=== PATIENT | male | born 1955 | race Caucasian/White ===

== ENCOUNTER 2017-10-09 10:53 | Emergency (ER) | payer OTHER ==
[2017-10-09 11:32] LABS: Absolute Lymphocytes (CBC) 1.8 K/uL (0.7-4.9); Absolute Monocytes 0.9 K/uL (0.1-1.3); Absolute Neutrophil 4.2 K/uL (1.8-8.0); Basophils % 0.5 % (0-1.3); Eosinophils % 1.6 % (0-4.4); Hematocrit 40.8 % (39.6-49.0); Lymphocytes % 25.7 % (15.3-44.8); MCH 33.2 pg (27.0-35.0); MCV 95.8 fL (80-100); Monocytes % 12.5 % (3.3-12.3); RBC Red Blood Cell Count 4.26 M/uL (4.33-5.43)
[2017-10-09 11:41] LABS: Protime INR 1.03
--- NOTE | 2017-10-09 11:46 | RAD REPORT ---
EXAM DESCRIPTION: RAD - Chest Single View - 10/09/2017 11:36 am CLINICAL HISTORY: CHEST PAIN Chest pain. COMPARISON: CHEST SINGLE VIEW dated 10/20/2014; CHEST PA AND LAT 2 VIEW dated 07/13/2013; CHEST SINGLE VIEW dated 09/24/2012 FINDINGS: Portable technique limits examination quality. The lungs are grossly clear. The heart is normal in size. No displaced fractures. IMPRESSION: No acute intrathoracic process suspected.
[2017-10-09 11:52] LABS: ALT/SGPT 49 U/L (12-78); AST/SGOT 31 U/L (15-37); Alkaline Phosphatase 64 U/L (45-117); BUN Blood Urea Nitrogen 11 mg/dL (7-18); Bicarbonate 31 mmol/L (21-32); Bilirubin Direct 0.2 mg/dL (0-0.2); Bilirubin Total 0.5 mg/dL (0.2-1.0); Glucose Level 87 mg/dL (74-106); Magnesium 2.1 mg/dL (1.8-2.4); NT PRO-BNP 181 pg/mL (<125); Potassium 3.9 mmol/L (3.5-5.1); Protein, Total 7.2 g/dL (6.4-8.2); Sodium Level 140 mmol/L (136-145)
--- NOTE | 2017-10-09 12:46 | EKG ---
Test Date: 2017-10-09 Test Time: 11:01:47 Facilities Management Executive: MOMO MEASUREMENT RESULTS: Intervals: Rate: 55 [place]: 172 QRSD: 84 QT: 426 QTc: 407 [place]: P: 44 [place]: 172 QRS: 8 T: 41 INTERPRETIVE STATEMENTS: Sinus bradycardia Otherwise normal ECG Compared to ECG 10/20/2014 08:38:28 Sinus rhythm no longer present Myocardial infarct finding no longer present Electronically Signed On 10-09-17 12:45:46 CDT by Wali Otero
--- NOTE | 2017-10-09 14:54 | ER ---
Nurse's Notes [facility] Name: Ashely Dorantes Age: 62 yrs Sex: Male : 1955 Arrival Date: 10/09/2017 Time: 10:54 Bed 8 Private MD: Out, [facility] Diagnosis: Presentation: 10/09 11:02 Presenting complaint: Patient states: CP that began this morning and lasted 20-30 ss minutes. Pt called his aboriginal liaison officer who told him to go to the nearest ER immediately. Pt reports his pain improved because he reportedly took 700 mg this morning. Transition of care: patient was not received from another setting of care. Onset of symptoms was October 09, 2017. Risk Assessment: Do you want to hurt yourself or someone else? Patient reports no desire to harm self or others. Initial Sepsis Screen: Does the patient meet any 2 criteria? No. Patient's initial sepsis screen is negative. Does the patient have a suspected source of infection? No. Patient's initial sepsis screen is negative. Care prior to arrival: Pt reports he self administered ASA 700 mg, and now feels better. 11:02 Method Of Arrival: Ambulatory ss 11:02 Acuity: NUHA 3 ss 11:15 Note Pt also c/o excessive thirst since this morning. ss Historical: - Allergies: 11:07 Morphine; ss - Home Meds: 11:07 temazepam 15 mg Oral cap 1 cap once daily [Active]; Lexapro 30 mg Oral 1 tab once daily ss [Active]; metoprolol tartrate 25 mg Oral tab 1 tab once daily [Active]; clopidogrel 75 mg oral tab 1 tab once daily [Active]; atorvastatin 80 mg oral tab 1 tab once daily [Active]; finasteride 5 mg oral tab 1 tab once daily [Active]; - PMHx: 11:07 Myocardial infarction; CAD; ss - PSHx: 11:07 Heart stents; ss - Immunization history:: Adult Immunizations up to date. - Social history:: Smoking status: Patient/guardian denies using tobacco. - Ebola Screening: : Patient denies exposure to infectious person Patient denies travel to an Ebola-affected area in the 21 days before illness onset. Screenin:15 Abuse screen: Denies threats or abuse. Denies injuries from another. Nutritional hb screening: No deficits noted. Tuberculosis screening: No symptoms or risk factors identified. Fall Risk None identified. Assessment: 11:00 General: Appears in no apparent distress. Behavior is calm, cooperative. Pain: hb Complains of pain in chest Pain does not radiate. Pain currently is 2 out of 10 on a pain scale. Pain began suddenly, 1 hour ago. Neuro: Level of Consciousness is awake, alert, obeys commands, Oriented to person, place, time, situation. Cardiovascular: Heart tones S1 S2 present Capillary refill < 3 seconds Patient's skin is warm and dry. Respiratory: Airway is patent Trachea midline Respiratory effort is even, unlabored, Respiratory pattern is regular, symmetrical, Breath sounds are clear bilaterally. GI: No signs and/or symptoms were reported involving the gastrointestinal system. GI: No signs and/or symptoms were reported involving the gastrointestinal system. : No signs and/or symptoms were reported regarding the genitourinary system. EENT: No signs and/or symptoms were reported regarding the EENT system. Derm: No signs and/or symptoms reported regarding the dermatologic system. Skin is intact, is healthy with good turgor, Skin is pink, warm \T\ dry. Musculoskeletal: No signs and/or symptoms reported regarding the musculoskeletal system. 11:59 Reassessment: Patient appears in no apparent distress at this time. No changes from previously documented assessment. Patient and/or family updated on plan of care and expected duration. Pain level reassessed. Patient is alert, oriented x 3, equal unlabored respirations, skin warm/dry/pink. 13:00 Reassessment: Patient appears in no apparent distress at this time. Patient and/or sg family updated on plan of care and expected duration. Pain level reassessed. Patient is alert, oriented x 3, equal unlabored respirations, skin warm/dry/pink. at bedside updating pt on need for repeat cardiac series testing. pt stated understanding. orders received to redraw blood and repeat EKG after 3 hours of initial orders. Patient states feeling better. 13:40 Reassessment: pt requesting to leave now, does not wish to wait for the redraw time of sg repeat cardiac labs and EKG. notified. speaking with pt at this time. 13:50 Reassessment: Patient appears in no apparent distress at this time. Patient is alert, sg oriented x 3, equal unlabored respirations, skin warm/dry/pink. pt educated by on AMA, pt educated by ER staff on AMA, pt continues to refuse, requests to leave AMA, AMA formed signed. pt to be dispo AMA Patient denies pain at this time. Vital Signs: 11:07 BP 132 / 83; Pulse 56; Resp 17; Temp 97.8(O); Pulse Ox 97% on R/A; Weight 84.37 kg; ss Height 5 ft. 10 in. (177.80 cm); Pain 0/10; 11:59 BP 130 / 72; Pulse 66; Resp 15; Pulse Ox 100% on R/A; hb 12:59 BP 115 / 85; Pulse 67; Resp 21; Pulse Ox 97% on R/A; dh3 13:41 BP 109 / 65; Pulse 56; Resp 14; Pulse Ox 97% on R/A; dh3 11:07 Body Mass Index 26.69 (84.37 kg, 177.80 cm) ED Course: 10:54 Patient arrived in ED. sb2 10:54 Out, of [facility] is Private Physician. sb2 10:56 Michael Hernandez MD is Attending Physician. kdr 11:05 Triage completed. ss 11:07 Inserted saline lock: 18 gauge in right antecubital area, using aseptic technique. dh3 Blood collected. 11:07 EKG done, by pattern technician. reviewed by Michael Hernandez MD. at1 11:07 Arm band placed on right wrist. ss 11:10 Patient maintains SpO2 saturation greater than 95% on room air. sg 11:15 Patient has correct armband on for positive identification. Placed in gown. Bed in low sg position. Call light in reach. Side rails up X2. laboratory monitor on. Pulse ox on. NIBP on. Warm blanket given. Head of bed elevated. 11:33 X-ray completed. Portable x-ray completed in exam room. Patient tolerated procedure jb2 well. 11:34 XRAY Chest (1 view) In Process Unspecified. EDMS 12:01 Mago Cha, RN is Primary Nurse. hb 13:40 No provider procedures requiring assistance completed. sg 13:58 IV discontinued, intact, bleeding controlled, No redness/swelling at site. Pressure sg dressing applied. Administered Medications: No medications were administered Outcome: 13:58 AMA AMA form signed 13:58 Condition: stable 13:58 Instructed on need for repeat cardiac testing in the ED, risks associated with leaving AMA Demonstrated understanding of instructions. 14:54 Patient left the ED. Signatures: Dispatcher [employer] EDJuvenal Darby RN RN sg Rittger, Kevin, MD MD kdr Buechter, Jesse jb2 Kaur Jay RN RN Cordelia ohara, pre billing clinician EKG Tat1 Mago Cha RN RN Radha Mason 3 Flora Dillon sb2
--- NOTE | 2017-10-09 14:54 | EDPHYS ---
Physician Documentation [facility] Name: Ashely Dorantes Age: 62 yrs Sex: Male : 1955 Arrival Date: 10/09/2017 Time: 10:54 Bed 8 Private MD: Out, [facility] ED Physician Michael Hernandze HPI: 10/09 11:31 This 62 yrs old Male presents to ER via Ambulatory with complaints of Chest kdr Pain. 11:31 The patient or guardian reports chest pain that is located primarily in the substernal kdr area, anterior chest wall. Onset: suddenly, this morning. The pain does not radiate. Associated signs and symptoms: Pertinent positives: diaphoresis, nausea, shortness of breath, Pertinent negatives: abdominal pain, headache, lower extremity pain, lower extremity swelling, lightheadedness, near syncope, palpitations, recent travel, syncope, vomiting. The chest pain is described as aching, burning, dull, a heaviness, a pressure. Duration: The patient or guardian reports a single episode, that is now resolved, that lasted 30 minute(s). Severity of pain: At its worst the pain was mild moderate just prior to arrival, in the emergency department the pain has resolved. The patient has experienced similar episodes in the past, The patient has been having intermittent CP for the past few week and today's episode was slightly more severe and lasted much longer, 30+ minutes as opposed to five minutes on average previosuly. Historical: - Allergies: 11:07 Morphine; ss - Home Meds: 11:07 temazepam 15 mg Oral cap 1 cap once daily [Active]; Lexapro 30 mg Oral 1 tab once daily ss [Active]; metoprolol tartrate 25 mg Oral tab 1 tab once daily [Active]; clopidogrel 75 mg oral tab 1 tab once daily [Active]; atorvastatin 80 mg oral tab 1 tab once daily [Active]; finasteride 5 mg oral tab 1 tab once daily [Active]; - PMHx: 11:07 Myocardial infarction; CAD; ss - PSHx: 11:07 Heart stents; ss - Immunization history:: Adult Immunizations up to date. - Social history:: Smoking status: Patient/guardian denies using tobacco. - Ebola Screening: : Patient denies exposure to infectious person Patient denies travel to an Ebola-affected area in the 21 days before illness onset. ROS: 11:31 Constitutional: Negative for fever, chills, and weight loss, Eyes: Negative for injury, kdr pain, redness, and discharge, ENT: Negative for injury, pain, and discharge, Neck: Negative for injury, pain, and swelling, Respiratory: Negative for shortness of breath, cough, wheezing, and pleuritic chest pain, Abdomen/GI: Negative for abdominal pain, nausea, vomiting, diarrhea, and constipation, Back: Negative for injury and pain, : Negative for injury, bleeding, discharge, and swelling, MS/Extremity: Negative for injury and deformity, Skin: Negative for injury, rash, and discoloration, Neuro: Negative for headache, weakness, numbness, tingling, and seizure activity. Psych: Negative for depression, anxiety, suicide ideation, homicidal ideation, and hallucinations, Allergy/Immunology: Negative for hives, rash, and allergies, Endocrine: Negative for neck swelling, polydipsia, polyuria, polyphagia, and marked weight changes, Hematologic/Lymphatic: Negative for swollen nodes, abnormal bleeding, and unusual bruising. 11:31 Cardiovascular: Positive for chest pain, Negative for edema, orthopnea, palpitations, paroxysmal nocturnal dyspnea. Exam: 11:31 Constitutional: This is a well developed, well nourished patient who is awake, alert, kdr and in no acute distress. Head/Face: Normocephalic, atraumatic. Eyes: Pupils equal round and reactive to light, extra-ocular motions intact. Lids and lashes normal. Conjunctiva and sclera are non-icteric and not injected. Cornea within normal limits. Periorbital areas with no swelling, redness, or edema. Neck: Trachea midline, no thyromegaly or masses palpated, and no cervical lymphadenopathy. Supple, full range of motion without nuchal rigidity, or vertebral point tenderness. No Meningismus. Chest/axilla: Normal chest wall appearance and motion. Nontender with no deformity. No lesions are appreciated. Cardiovascular: Regular rate and rhythm with a normal S1 and S2. No gallops, murmurs, or rubs. Normal PMI, no JVD. No pulse deficits. Respiratory: Lungs have equal breath sounds bilaterally, clear to auscultation and percussion. No rales, rhonchi or wheezes noted. No increased work of breathing, no retractions or nasal flaring. Abdomen/GI: Soft, non-tender, with normal bowel sounds. No distension or tympany. No guarding or rebound. No evidence of tenderness throughout. Back: No spinal tenderness. No costovertebral tenderness. Full range of motion. Skin: Warm, dry with normal turgor. Normal color with no rashes, no lesions, and no evidence of cellulitis. MS/ Extremity: Pulses equal, no cyanosis. Neurovascular intact. Full, normal range of motion. Neuro: Awake and alert, GCS 15, oriented to person, place, time, and situation. Cranial nerves II-XII grossly intact. Motor strength 5/5 in all extremities. Sensory grossly intact. Cerebellar exam normal. Normal gait. Psych: Awake, alert, with orientation to person, place and time. Behavior, mood, and affect are within normal limits. Vital Signs: 11:07 BP 132 / 83; Pulse 56; Resp 17; Temp 97.8(O); Pulse Ox 97% on R/A; Weight 84.37 kg; ss Height 5 ft. 10 in. (177.80 cm); Pain 0/10; 11:59 BP 130 / 72; Pulse 66; Resp 15; Pulse Ox 100% on R/A; hb 12:59 BP 115 / 85; Pulse 67; Resp 21; Pulse Ox 97% on R/A; dh3 13:41 BP 109 / 65; Pulse 56; Resp 14; Pulse Ox 97% on R/A; dh3 11:07 Body Mass Index 26.69 (84.37 kg, 177.80 cm) ss MDM: 11:31 Data reviewed: vital signs, nurses notes, lab test result(s), EKG, radiologic studies. kdr 14:54 Patient medically screened. [facility] 10/09 11:12 Order name: Basic Metabolic Panel [facility] 10/09 11:12 Order name: CBC with Diff; Complete Time: 13:25 [facility] 10/09 11:12 Order name: LFT's; Complete Time: 13:25 [facility] 10/09 11:12 Order name: Magnesium; Complete Time: 13:25 [facility] 10/09 11:12 Order name: NT PRO-BNP; Complete Time: 13:25 [facility] 10/09 11:12 Order name: PT-INR; Complete Time: 13:25 [facility] 10/09 11:12 Order name: Ptt, Activated; Complete Time: 13:25 kdr 10/09 11:12 Order name: Troponin (emerg Dept Use Only); Complete Time: 13:25 kdr 10/09 11:12 Order name: XRAY Chest (1 view); Complete Time: 13: kdr 10/09 11:12 Order name: EKG; Complete Time: 11: kdr 10/09 11:12 Order name: Cardiac monitoring; Complete Time: 11: kdr 10/09 11:12 Order name: EKG - Nurse/Tech; Complete Time: 11: kdr 10/09 11:12 Order name: Basic Metabolic Panel; Complete Time: 13: EDMS 10/09 11:12 Order name: IV Saline Lock; Complete Time: : kdr 10/09 11:12 Order name: Labs collected and sent; Complete Time: : kdr 10/09 11:12 Order name: O2 Per Protocol; Complete Time: : kdr 10/09 11:12 Order name: O2 Sat Monitoring; Complete Time: : kdr 10/09 11:12 Order name: Urine Dipstick-Ancillary (obtain specimen); Complete Time: 12: kdr 10/09 13:30 Order name: EKG Strip: 3 hours after first draw kdr Administered Medications: No medications were administered Disposition: 10/09/17 14:54 Patient has left against medical advice. - Patients states they are going to Home. - Condition is Fair. Follow up: Private Physician; When: 48 Hours; Reason: If symptoms return, Further diagnostic work-up, Recheck today's complaints, Continuance of care, Re-evaluation by your physician. - Problem is an acute exacerbation. - Symptoms have improved. Signatures: Dispatcher [employer] Juvenal Martinez RN RN sg Michael Hernandez MD MD kdr Kaur Jay RN RN ss Corrections: (The following items were deleted from the chart) 14:54 14:54 10/09/2017 14:54 Patients has left against medical advice. Patient states they sg are going to Home. Condition is Fair. Follow up: Private Physician; When: 48 Hours; Reason: If symptoms return, Further diagnostic work-up, Recheck today's complaints, Continuance of care, Re-evaluation by your physician. Problem is an acute exacerbation. Symptoms have improved. kdr
== END 2017-10-09 14:54 | disposition left against medical advice (07) ==
LOC: ER 10:53
DX: I25.10 Atherosclerotic heart disease of native coronary artery without angina pectoris (principal); Z95.5 Presence of coronary angioplasty implant and graft; Z88.5 Allergy status to narcotic agent; I25.2 Old myocardial infarction
CPT/HCPCS: 36415; 71045; 80048; 80076; 83735; 83880; 84484; 85025; 85610; 85730; 93005; 99285

== ENCOUNTER 2022-11-15 11:06 | Day surgery (SDC) | payer OTHER ==
[2022-11-12 16:14] LABS: Absolute Lymphocytes (CBC) 2.1 K/uL (0.7-4.9); Hematocrit 42.4 % (39.6-49.0); Lymphocytes % 24.2 % (15.3-44.8); MCV 96.8 fL (80-100); MPV 8.2 fL (7.6-11.3); Platelets 234 thou/uL (152-406); RBC Red Blood Cell Count 4.38 M/uL (4.33-5.43)
[2022-11-12 16:27] LABS: Protime INR 1.06
--- NOTE | 2022-11-12 16:30 | RAD REPORT ---
EXAM DESCRIPTION: Ana Cristina Broderick And Cristina (2 Views)11/12/2022 4:18 pm CLINICAL HISTORY: Preop cardiac catheterization. Hypertension COMPARISON: 2018 FINDINGS: The lungs appear clear of acute infiltrate. The heart is borderline enlarged IMPRESSION: No acute abnormalities displayed
--- NOTE | 2022-11-13 18:44 | EKG ---
Test Date: 2022-11-12 Test Time: 15:59:24 Bioinformatics Associate: AYAD MEASUREMENT RESULTS: Intervals: Rate: 60 [place]: 172 QRSD: 100 QT: 422 QTc: 422 [place]: P: 35 [place]: 172 QRS: -35 T: -38 INTERPRETIVE STATEMENTS: Normal sinus rhythm Left axis deviation Abnormal ECG Compared to ECG 10/09/2017 11:01:47 Left-axis deviation now present Sinus bradycardia no longer present Electronically Signed On 11-13-22 18:42:17 CDT by Eric Salas
[2022-11-15] MEDS ORDERED: NA CHLORIDE 0.9% 500 ML ONE (11:24)
[2022-11-15 11:40] VITALS: TEMP 98
[2022-11-15] MEDS ORDERED: LIDOCAINE 1% 20 ML MDV ONE (12:54)
[2022-11-15] MEDS ORDERED: HEPA 1000U/500MLS 2,000 UNIT/1,000 ML BAG IV ONE (13:59)
[2022-11-15] MEDS ORDERED: FENTANYL CITR 100 MCG/2 ML ONE (14:30)
[2022-11-15] MEDS ORDERED: MIDAZOLAM HCL 2 MG/2 ML INJ ONE (14:31)
[2022-11-15] MEDS ORDERED: ATROPINE SULF 1 MG/10 ML SYR IV ONE (14:31)
[2022-11-15] MEDS ORDERED: NITROGLYCERIN 100 MCG/ML SYR (for cath lab use only) IV ONE (14:31)
[2022-11-15] MEDS ORDERED: HEPARIN 10,000 UNIT/10 ML VIAL IV ONE (14:55)
[2022-11-15] MEDS ORDERED: ASPIRIN 325 MG TAB ONE (14:56)
[2022-11-15] MEDS ORDERED: CLOPIDOGREL 75 MG TABLET ONE (14:57)
[2022-11-15] MEDS ORDERED: ONDANSETRON 4 MG/2 ML VIAL ONE (15:12)
--- NOTE | 2022-11-15 16:13 | OP ---
Date of Procedure: 11/15/2022 Surgeon: LORI LEVIN Procedures Performed: 1.Selective coronary angiogram. 2.Left heart catheterization. 3.Percutaneous coronary intervention of severe mid right coronary artery stenosis, used 3.0 x 32 mm Synergy drug-eluting stent with excellent results. Indication: Chest pain with abnormal stress test. Access: Right femoral artery 6-Stateless closed with 6-Stateless Angio-Seal. Complications: None. Bleeding: Less than 20 mL. Total Sedation Time: 30 minutes. Description Of Procedure: After risks, benefits, and alternatives were explained, patient agreed to procedure and signed informed consent. Patient was brought into cardiac ablation laboratory, prepped and draped in usual sterile fashion. Then, I accessed right femoral artery using micropuncture kit, ultrasound guidance fluoroscopy. Placed a 6-Stateless [place] sheath and then took 6-Stateless JL4 scottie ter into the aortic root over a J-wire, engaged left main, took standard views and exchanged for a 6- Stateless JR4 catheter and engaged the RCA, took standard views and the catheter was pushed over the wir e into the LV. Measured LVEDP and pullback did not record any gradient. Then, I gave systemic hepar in pressure to assure ACT level above 250 throughout the procedure. Gave 600 mg of Plavix and 325 mg aspirin and then took a 6-Stateless JR4 guide with side holes into the aortic root, engaged the RCA and took Runthrough wire into the RCA, placed distally and using a 3.0 balloon, the lesions were dilated and expanded very well and then placed 3.0 x 32 mm Synergy drug-eluting stent across the area of phoebe nosis with excellent results. Then, removed the wire. Final angiogram was satisfactory and then rem mello the guide and sheath, placed 6-Stateless Angio-Seal for closure. Good hemostasis. Findings: 1.Left main: Large and normal. 2.LAD: Large vessel with widely patent proximal stent, normal diagonal branches. 3.Left circumflex: It is large codominant circulation with OM having 40% proximally. 4.RCA: Large and dominant, proximal to mid 60%, mid 80%, and mid to distal 70%, status post success ful PCI as above. 5.LVEDP borderline elevated 50 mmHg. Conclusion: 1.Severe mid RCA stenosis, status post successful PCI as above. 2.Patent LAD stent and moderate coronary artery disease elsewhere. Plan: Aspirin, Plavix, and statin. Follow up with me in the office in 2 weeks. SR/ROMANL Voice ID: [id number] Report ID: [id number]
[2022-11-15 18:05] VITALS: BP 103/89; O2SAT 97
== END 2022-11-15 18:05 | disposition home or self-care (01) ==
LOC: CCL 11:06
PROVIDERS: ATTEND Internal Medicine
DX: I25.10 Atherosclerotic heart disease of native coronary artery without angina pectoris (principal); I10 Essential (primary) hypertension; E78.5 Hyperlipidemia, unspecified; Z95.5 Presence of coronary angioplasty implant and graft; Z79.899 Other long term (current) drug therapy; Z88.5 Allergy status to narcotic agent
CPT/HCPCS: 36415; 71046; 76937; 80048; 85025; 85347; 85610; 85730; 92928; 93005; 93458; C1725; C1760; C1893; G0269; J0461; J2001; J2250; J2405; J3010; J7040; Q9966